=== PATIENT | female | born 1995 | race Caucasian/White ===

== ENCOUNTER → 2021-04-26 | Outpatient (CLI) | payer OTHER ==
[2021-04-26 13:30] LABS: HEMOGLOBIN 14.8 gm/dl (12.3-15.3); RED BLOOD COUNT 4.97 M/UL (4.00-5.10); WHITE BLOOD COUNT 6.9 K/UL (4.5-11.0)
[2021-04-26 13:54] LABS: BUN/CREATININE RATIO 14 (0-10)
== END ==
LOC: RAD 12:53 → LAB 12:53
PROVIDERS: Nurse Practitioner
DX: U07.1 COVID-19 (principal); R06.2 Wheezing; R06.02 Shortness of breath
CPT/HCPCS: 36415; 71046; 80053; 85025; 85379